=== PATIENT | male | born 1960 | race Two or more races ===

== ENCOUNTER 2019-02-17 12:48 | Emergency (ER) | payer OTHER ==
[~2019-02-17] VITALS: Ht 172.7 cm; Wt 79.8 kg
[~2019-02-17 12:48] MED LIST: LISINOPRIL10 MG; LISINOPRIL2.5 MG; LISINOPRIL5 MG PO
== END 2019-02-17 19:30 | disposition home or self-care (01) ==
LOC: ER 12:48
DX: K29.70 Gastritis, unspecified, without bleeding (principal); K58.9 Irritable bowel syndrome, unspecified